=== PATIENT | male | born 1965 | race Caucasian/White ===

== ENCOUNTER 2020-02-07 15:24 | Inpatient (IN) | payer OTHER, SELFPAY ==
[2020-02-07] MEDS ORDERED: Ondansetron PF 4 MG/2 ML Vial ONE (15:59)
[2020-02-07] MEDS ORDERED: Pantoprazole 40 MG VIAL ONE ×2 (15:59→16:00)
[2020-02-07 16:04] LABS: #Basophils 0.1 thou/uL (0.0-0.2); #Eosinphils 0.1 thou/uL (0.0-0.7); #Lymphocytes 2.4 thou/uL (1.20-3.40); #Monocytes 0.9 thou/uL (0.11-0.59); #Neutrophils 3.8 thou/uL (1.40-6.50); %Basophils 1.3 % (0.0-1.0); %Eosinophils 1.3 % (0.0-10.0); %Lymphocytes 33.4 % (21.0-51.0); %Monocytes 12.3 % (0.0-10.0); %Neutrophils 51.7 % (42.0-75.0); Hemoglobin 11.9 g/dL (14.0-18.0); Mean Corpuscular HGB CONC 33.8 g/dL (32.0-36.0); Mean Corpuscular Hemoglobin 36.6 pg (27.0-31.0); Mean Platelet Volume 10.1 fL (7.4-10.4); Platelet Count 120 thou/uL (130-400); RBC Distribution Width 12.8 % (11.5-14.5); Red Blood Cell (RBC) Count 3.26 mill/uL (4.70-6.10); White Blood Cell (WBC) Count 7.3 thou/uL (4.8-10.8)
[2020-02-07 16:11] LABS: INR-International Normal Ratio 3.6; PTT 56.2 sec (22.9-36.1); Prothrombin Time 36.3 sec (12.0-14.7)
[2020-02-07 16:30] LABS: ALT (SGPT) 36 U/L (8-55); AST (SGOT) 93 U/L (5-34); Albumin 2.1 g/dL (3.5-5.0); Alkaline Phosphatase 93 U/L (40-110); Anion Gap 15 mmol/L (10-20); BUN (Urea Nitrogen) 15 mg/dL (8.4-25.7); Bilirubin, Total 5.9 mg/dL (0.2-1.2); Calc. Creatinine Clearance 0 mL/min (70-130); Calcium 8.7 mg/dL (7.8-10.44); Carbon Dioxide 15 mmol/L (22-29); Chloride 103 mmol/L (98-107); Estimated GFR-MDRD 85; Globulin 6.5 g/dL (2.4-3.5); Glucose 77 mg/dL (70-105); Potassium 4.2 mmol/L (3.5-5.1); Protein, Total 8.6 g/dL (6.0-8.3); Sodium 129 mmol/L (136-145)
[2020-02-07] MEDS ORDERED: Octreotide Acetate 100 MCG/ML VIAL ONE (16:51)
[2020-02-07] MEDS ORDERED: cefTRIAXone\\ROCEPHIN 1 GM VIAL ONE (16:52)
[2020-02-07] MEDS ORDERED: Octreotide Acetate 1,250 MCG in Sodium Chloride 0.9% 250 ML 250 ML IVPB SCH ×2 (17:15→18:15)
[2020-02-07] MEDS ORDERED: Pantoprazole 80 MG, Admixture Fee 1 EACH in Sodium Chloride 0.9% 100 ML IVPB SCH (17:15)
[2020-02-07] MEDS ORDERED: Ondansetron PF 4 MG/2 ML Vial IVP PRN (17:59)
[2020-02-07] MEDS ORDERED: Nicotine 21 MG PATCH TD SCH (18:00)
--- NOTE | 2020-02-07 18:08 | PDOC.HHP ---
Hospitalist HPI - History of Present Illness Vomiting blood History of Present Illness: Patient is a pleasant 54-year-old gentleman who was seen in the emergency room on February 07, 2020. He reports that he was diagnosed in the past with cirrhosis secondary to alcohol abuse and hepatitis C. He he was recently seen in the gastroenterology clinic. He reports that he started vomiting blood last night. He reports multiple episodes of hematemesis. He denies any chest pain. He reports generalized weakness. He reports nausea. He reports pain in the epigastric region. He is unable to describe the pain further. He denies any blood in the stools. In the emergency room, he continues to have occasional hematemesis. He was hypotensive while in the emergency room but his blood pressures have recovered since then. He has been referred to hospitalist service for admission to the hospital. Emergency room physician has also discussed his case with inspection manager on-call. ED Course: BP: 103/79, Pulse: 89, Resp: 16, Pain: 3, O2 sat: 99 on (Room Air), Time: 02/07/2020 16:40. Hospitalist ROS - Review of Systems Constitutional: reports: weakness. denies: fever, chills, sweats, malaise Cardiovascular: denies: chest pain, palpitations, orthopnea, paroxysmal noc. dyspnea, edema, light headedness Gastrointestinal: reports: vomiting, abdominal pain, other (Hematemesis) All other systems reviewed; all pertinent +/- noted in HPI/Subj - Medication Medications: Allergies: Dextromethorphan Home medications: Klor-Con ThuFeb 07, 2020 16:10 VAISHNAVI Bolden Lauren packet : Strength - 20 mEq : ORAL Patient Dose: 10 mEq. lactulose ThuFeb 07, 2020 16:11 VAISHNAVI Bolden Lauren solution : Strength - 20 gram/30 mL : ORAL Patient Dose: 2 times a day. Hospitalist History - Past Medical History Other Medical History: Past medical history: Hepatitis C, diverticulitis, bladder cancer status post surgical removal of tumor, urinary retention, microcytic anemia, cirrhosis of liver and gastroesophageal reflux disease. Surgical history: Surgery for diverticulitis and removal of bladder cancer. 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 He has not used drugs for 6 years. Patient quit tobacco and alcohol use on December 19, 2019. Prior to that, he used to smoke half a pack of cigarettes a day and drink 1 beer a day. Family history: No family history of premature coronary artery disease. - Exam General Appearance: awake alert Eye: scleral icterus ENT: normocephalic atraumatic, moist mucosa Neck: supple, symmetric, no thyromegaly Heart: RRR, no rubs Respiratory: CTAB Gastrointestinal: soft, no guarding, no rigidity Gastrointestinal - other findings: Mild epigastric tenderness Skin: no rashes Psychiatric: normal affect, normal behavior Hospitalist Results - Labs Result Diagrams: 02/07/20 15:44 02/07/20 15:44 Lab results: WBC 7.3 thou/uL (4.8-10.8) 02/07/20 15:44 Hgb 11.9 g/dL (14.0-18.0) L 02/07/20 15:44 Hct 35.2 % (42.0-52.0) L 02/07/20 15:44 MCV 108.0 fL (78.0-98.0) H 02/07/20 15:44 Plt Count 120 thou/uL (130-400) L 02/07/20 15:44 Neutrophils % 51.7 % (42.0-75.0) 02/07/20 15:44 Sodium 129 mmol/L (136-145) L 02/07/20 15:44 Potassium 4.2 mmol/L (3.5-5.1) 02/07/20 15:44 Chloride 103 mmol/L (98-107) 02/07/20 15:44 Carbon Dioxide 15 mmol/L (22-29) L 02/07/20 15:44 BUN 15 mg/dL (8.4-25.7) 02/07/20 15:44 Creatinine 0.93 mg/dL (0.7-1.3) 02/07/20 15:44 Glucose 77 mg/dL (70-105) 02/07/20 15:44 Calcium 8.7 mg/dL (7.8-10.44) 02/07/20 15:44 Total Bilirubin 5.9 mg/dL (0.2-1.2) H 02/07/20 15:44 AST 93 U/L (5-34) H 02/07/20 15:44 ALT 36 U/L (8-55) 02/07/20 15:44 Alkaline Phosphatase 93 U/L (40-110) 02/07/20 15:44 Ammonia 78 umol/L (18-72) H 02/07/20 15:44 Serum Total Protein 8.6 g/dL (6.0-8.3) H 02/07/20 15:44 Albumin 2.1 g/dL (3.5-5.0) L 02/07/20 15:44 Hospitalist H&P A/P - Problem (1) Hematemesis Code(s): K92.0 - HEMATEMESIS Status: Acute (2) Cirrhosis Code(s): K74.60 - UNSPECIFIED CIRRHOSIS OF LIVER Status: Chronic (3) Gastroesophageal reflux disease Code(s): K21.9 - GASTRO-ESOPHAGEAL REFLUX DISEASE WITHOUT ESOPHAGITIS Status: Chronic (4) Hepatitis C Code(s): B19.20 - UNSPECIFIED VIRAL HEPATITIS C WITHOUT HEPATIC COMA Status: Chronic (5) History of alcohol abuse Code(s): F10.11 - ALCOHOL ABUSE, IN REMISSION Status: Chronic (6) History of tobacco abuse Code(s): Z87.891 - PERSONAL HISTORY OF NICOTINE DEPENDENCE Status: Chronic (7) History of recreational drug use Code(s): Z87.898 - PERSONAL HISTORY OF OTHER SPECIFIED CONDITIONS Status: Chronic (8) Depression Code(s): F32.9 - MAJOR DEPRESSIVE DISORDER, SINGLE EPISODE, UNSPECIFIED Status: Chronic - Plan Plan: Patient will be admitted to the hospital. He will be treated with octreotide drip and PPI drip. Gastroenterology service has been notified by emergency room physician. I will recheck his H&H. We will type and screen in case he needs blood products. He was hypotensive earlier but is currently normotensive. Depression appears to be stable, currently untreated. Patient will need to seek help as outpatient. Many thanks for allowing me to participate in your patient's care. Please feel free to contact me with any questions or concerns. Level of risk: Moderate Level of complexity: Moderate Expected length of stay in the hospital: Greater than 2 midnights Primary CARE provider: Dr. Selwyn Anaya
[2020-02-07] MEDS ORDERED: Multivitamins, Adult 10 ML, Folic Acid 1 MG, Thiamine HCl 100 MG in Dextrose 5 %-0.45 %... IV SCH (18:15)
[2020-02-07] MEDS ORDERED: Phytonadione 10 MG/ML AMP SC SCH (19:00)
[2020-02-07 19:01] LABS: Hemoglobin 10.1 g/dL (14.0-18.0)
--- NOTE | 2020-02-07 19:52 | CON ---
DATE OF CONSULTATION: 02/07/2020 CHIEF COMPLAINT: Vomited blood. HISTORY OF PRESENT ILLNESS: Mr. Zamudio is a 54-year-old man, who has a recent diagnosis of decompensated cirrhosis secondary to alcohol. Yesterday morning, he threw up some red blood mixed with mucus he vomited. He passed one black stool yesterday. He also threw up red blood this morning again. He came into the emergency room. He reports one other black stool this morning. He had 3 other small volume red bloody emesis episodes this afternoon in the ER. He has been taking lactulose 30 mL at 8:00 a.m. and at 10:00 a.m. and has been having around 4 to 5 liquidy stools per day with that. He has had some intermittent episodes of nausea and vomiting over the last week. I saw him as a new patient in GI Clinic on 01/31/2020. He had originally presented to the emergency room a month before with weight loss and alcohol abuse and muscle wasting and abdominal distention and imaging showed signs of cirrhosis along with labs showing decompensated cirrhosis. He had presented with ascites and hepatic encephalopathy originally. He has had confusion and even some hallucinations reported by his . He does not have any abdominal pain currently. No other acute complaints currently. He was found to have hypotension with blood pressure in the 80s/50s in the emergency room. Currently, his blood pressure is 100/71. PAST MEDICAL HISTORY: Decompensated cirrhosis, hepatitis C per report. I will have labs backing that up currently. Alcohol abuse. His last drink was 1 month ago. Stroke, depression, diverticulitis, prior history of drug abuse. PAST SURGICAL HISTORY: He had a colectomy for diverticulitis back in 2009, that was the time of his last colonoscopy as well. FAMILY HISTORY: Negative for GI malignancy. SOCIAL HISTORY: He had been drinking a 40-ounce malt liquor 5 per day up until August 2019, then he cut down to 3 per day and more recently to 1 per day, and then over the last month, he stopped all alcohol. He used heroin from 2010 to 2016. He smokes a cigarette a day. REVIEW OF SYSTEMS: Negative x10 systems reviewed except as stated in the history of present illness. ALLERGIES: DEXTROMETHORPHAN. CURRENT MEDICATIONS: 1. Folic acid. 2. Thiamine. 3. Potassium. PHYSICAL EXAMINATION: VITAL SIGNS: His blood pressure is 100/71, pulse has been in the 80s, and he has been afebrile. GENERAL: He is oriented to his name and place. HEENT: He has jaundice and scleral icterus. Oropharynx has dry mucous membranes. Nose is clear. LYMPHATIC: Otherwise, no cervical or supraclavicular lymphadenopathy. LUNGS: Clear to auscultation bilaterally. HEART: Regular rate and rhythm without murmur. ABDOMEN: Soft, distended, and has fluid wave, but he is not tensed. His abdomen is nontender and his bowel sounds are present. EXTREMITIES: No lower extremity edema. NEUROLOGIC: He has asterixis on neurological exam. He has peripheral muscle wasting. LABORATORY DATA: White blood cell count 7.3, hemoglobin 11.9, hemoglobin back on 12/16/2019 was 12.7, MCV is 108, platelets 120. INR 3.6. Sodium 129, potassium 4.2, chloride 103, CO2 of 15, BUN 15, creatinine 0.93, bilirubin 5.9, AST 93, ALT 36, alkaline phosphatase 93, ammonia 78, albumin 2.1, total protein is 8.6 with a globulin of 6.5. IMPRESSION: 1. Hematemesis. We will need to evaluate for esophageal or gastric varices. His hematemesis has been relatively small volume and he did pass a couple of dark stools. Currently, he has a scant amount of dark stool in his rectal vault, but no significant melena or red blood in the rectal vault now. 2. Decompensated cirrhosis secondary to past alcohol and reported history of hepatitis C. His bilirubin is elevated. His INR is significantly elevated. His albumin is low. He has muscle wasting. His abdominal distention consistent with ascites. 3. Hepatic encephalopathy. He has asterixis on neurological exam currently. He was started on lactulose a few days ago and we will continue this. 4. Ascites. He has been started on a low-salt diet prior to this hospitalization. He will need to be covered with antibiotics for prophylaxis for SBP in light of GI bleed. Diagnostic tap can be performed later. 5. Hepatoma screening. We will check an alpha fetoprotein. Ultrasound was negative for mass recently on 12/16/2019. 6. Abnormal CT scan of the abdomen. CT scan on 12/16/2019 showed some thickening or edema of the right colon. However, I suspect this was likely just secondary to the ascites and portal hypertension. 7. Macrocytic anemia. RECOMMENDATIONS: 1. Octreotide bolus and drip. 2. Protonix drip. 3. EGD tomorrow morning. 4. Lab workup to evaluate the etiology of cirrhosis beyond the alcohol will include hepatitis C RNA, hepatitis C genotype, hepatitis A total antibody, hepatitis B surface antibody, hepatitis B surface antigen, smooth muscle antibody, mitochondrial antibody, iron studies, alpha-1 antitrypsin level, PT/INR, CMP. We will check B12 and folic acid as well. 5. Precautions for alcohol withdrawal. 6. Vitamin K. 7. Thiamine and folic acid. 8. Lactulose. He has asterixis now. Will give additional lactulose now. 9. Check alpha-fetoprotein. 10. Recheck labs in the morning. We might need to give additional FFP prior to the procedure, potentially if his INR remains significantly elevated. INR was 3.6 today. 11. We will keep in mind that his globulin is elevated, which could indicate an underlying autoimmune hepatitis as well. Job ID: [id number]
[2020-02-07 20:08] LABS: Iron 97 ug/dL (65-175); Iron Binding Capacity, Total 89 mcg/dL (261-462)
[2020-02-07] MEDS ORDERED: Phytonadione 10 MG/ML AMP ONE (20:10)
[2020-02-07 20:24] LABS: Ferritin 398.32 ng/mL (22-322)
[2020-02-07 23:07] LABS: HBSAB Concentration Less than 8.00 mIU/mL; Hep B Surf AB Non-Reactive (NonReactive); Hep B Surf Ag Non-Reactive S/CO (NonReactive)
[2020-02-07 23:22] LABS: Hemoglobin 9.8 g/dL (14.0-18.0)
[2020-02-08] MEDS: Pantoprazole 80 MG in Sodium Chloride 0.9% 100 ML IVPB SCH ×2 (03:24→15:00)
[2020-02-08 03:38] LABS: #Basophils 0.1 thou/uL (0.0-0.2); #Eosinphils 0.1 thou/uL (0.0-0.7); #Lymphocytes 2.2 thou/uL (1.20-3.40); #Neutrophils 4.2 thou/uL (1.40-6.50); %Basophils 0.7 % (0.0-1.0); %Eosinophils 1.5 % (0.0-10.0); %Lymphocytes 29.6 % (21.0-51.0); %Monocytes 12.7 % (0.0-10.0); %Neutrophils 55.5 % (42.0-75.0); Hemoglobin 10.7 g/dL (14.0-18.0); Mean Corpuscular HGB CONC 33.8 g/dL (32.0-36.0); Mean Corpuscular Hemoglobin 37.8 pg (27.0-31.0); Mean Platelet Volume 10.2 fL (7.4-10.4); Platelet Count 110 thou/uL (130-400); RBC Distribution Width 13.1 % (11.5-14.5); Red Blood Cell (RBC) Count 2.82 mill/uL (4.70-6.10); White Blood Cell (WBC) Count 7.5 thou/uL (4.8-10.8)
[2020-02-08 03:50] LABS: INR-International Normal Ratio 3.1; Prothrombin Time 32.7 sec (12.0-14.7)
[2020-02-08 04:15] LABS: ALT (SGPT) 35 U/L (8-55); AST (SGOT) 88 U/L (5-34); Alkaline Phosphatase 78 U/L (40-110); Anion Gap 17 mmol/L (10-20); BUN (Urea Nitrogen) 17 mg/dL (8.4-25.7); Calc. Creatinine Clearance 66 mL/min (70-130); Calcium 8.4 mg/dL (7.8-10.44); Carbon Dioxide 11 mmol/L (22-29); Chloride 106 mmol/L (98-107); Estimated GFR-MDRD 72; Globulin 5.8 g/dL (2.4-3.5); Glucose 80 mg/dL (70-105); Potassium 4.4 mmol/L (3.5-5.1); Protein, Total 7.8 g/dL (6.0-8.3); Sodium 130 mmol/L (136-145)
[2020-02-08 08:21] LABS: SARS-CoV-2 NAA Rapid Test Not Detected (NotDetected)
[2020-02-08] MEDS ORDERED: PROPOFOL 200 MG/20 ML VIAL ONE (08:56)
[2020-02-08] MEDS ORDERED: PHENYLEPHRINE-NS 100 MCG/ML 10 ML SYRINGE ONE (08:56)
[2020-02-08] MEDS ORDERED: Sodium Chloride 0.9% 100 ML ONE (09:33)
[2020-02-08] MEDS ORDERED: cefTRIAXone\\ROCEPHIN 2 GM VIAL ONE (09:33)
[2020-02-08] MEDS ORDERED: Phytonadione 10 MG/ML AMP PO SCH (10:30)
[2020-02-08] MEDS: Thiamine 100 MG TAB PO SCH (11:26)
[2020-02-08] MEDS: cefTRIAXone\\ROCEPHIN 2 GM in Sodium Chloride 0.9% 100 ML IVPB SCH (11:26)
--- NOTE | 2020-02-08 17:57 | PDOC.HOSPP ---
- Subjective Encounter Date: 02/08/20 Encounter Time: 14:30 Subjective: Patient seen for follow-up regarding hematemesis. Reports feeling better. Denies abdominal pain. - Objective Vital Signs & Weight: Vital Signs (12 hours) Temp 02/08/20 14:59 99.4 F 02/08/20 12:35 98.4 F 02/08/20 12:15 98.1 F 02/08/20 11:23 98.6 F 02/08/20 07:16 99.4 F Weight Admit Weight 129 lb 4 oz Weight 129 lb 4 oz Most Recent Monitor Data Heart Rate from ECG 110 NIBP 115/73 NIBP BP-Mean 87 Respiration from ECG 17 SpO2 99 I&O: 02/07/20 02/08/20 02/09/20 06:59 06:59 06:59 Intake Total 237 290 Balance 237 290 Result Diagrams: 02/08/20 03:21 02/08/20 03:21 Additional Labs: Labs and MAR reviewed by me EKG Reviewed by me: Yes (Telemetry: Sinus tachycardia) Hospitalist ROS - Review of Systems Constitutional: denies: fever, chills, sweats, weakness, malaise Cardiovascular: denies: chest pain, palpitations, orthopnea, paroxysmal noc. dyspnea, edema, light headedness Gastrointestinal: reports: other (Hematemesis). denies: nausea, vomiting, abdominal pain, diarrhea, constipation, melena, hematochezia Genitourinary: denies: dysuria, frequency, incontinence, hematuria, retention Musculoskeletal: denies: neck pain, shoulder pain, arm pain, back pain, hand pain, leg pain, foot pain Skin: denies: rash, lesions, [place], bruising - Medication Medications: Active Medications Generic Name Dose Route Start Last Admin Trade Name Freq PRN Reason Stop Dose Admin Pantoprazole Sodium 80 mg/ 100 mls @ 10 mls/hr 02/07/20 18:15 02/08/20 15:00 Sodium Chloride IVPB 100 mls INF NIKKO Administration Ceftriaxone Sodium 2 gm/ 100 mls @ 200 mls/hr 02/08/20 09:00 02/08/20 11:26 Sodium Chloride IVPB 100 mls Q24HR NIKKO Administration Lactulose 20 gm 02/08/20 09:00 02/08/20 11:26 Lactulose 20 Gm/30 Ml Udcup PO 20 gm BID NIKKO Administration Sodium Chloride 10 ml 02/08/20 09:00 02/08/20 11:27 Flush - Normal Saline 10 Ml Syringe IVF 10 ml Q12HR NIKKO Administration Thiamine HCl 100 mg 02/08/20 09:00 02/08/20 11:26 Thiamine 100 Mg Tab PO 100 mg DAILY NIKKO Administration - Exam General Appearance: awake alert Eye: scleral icterus Neck: supple, symmetric, no thyromegaly, no lymphadenopathy Heart: RRR, no rubs Respiratory: CTAB, no wheezes, no rales, no ronchi Gastrointestinal: soft, non-tender, normal bowel sounds, no palpable masses Skin: no rashes Psychiatric: normal affect, normal behavior, oriented to person, oriented to place Hosp A/P (1) Hematemesis Code(s): K92.0 - HEMATEMESIS Status: Acute (2) Cirrhosis Code(s): K74.60 - UNSPECIFIED CIRRHOSIS OF LIVER Status: Chronic (3) Gastroesophageal reflux disease Code(s): K21.9 - GASTRO-ESOPHAGEAL REFLUX DISEASE WITHOUT ESOPHAGITIS Status: Chronic (4) Hepatitis C Code(s): B19.20 - UNSPECIFIED VIRAL HEPATITIS C WITHOUT HEPATIC COMA Status: Chronic (5) History of alcohol abuse Code(s): F10.11 - ALCOHOL ABUSE, IN REMISSION Status: Chronic (6) History of tobacco abuse Code(s): Z87.891 - PERSONAL HISTORY OF NICOTINE DEPENDENCE Status: Chronic (7) History of recreational drug use Code(s): Z87.898 - PERSONAL HISTORY OF OTHER SPECIFIED CONDITIONS Status: Chr onic (8) Depression Code(s): F32.9 - MAJOR DEPRESSIVE DISORDER, SINGLE EPISODE, UNSPECIFIED Status: Chronic - Plan Status post EGD.Await report, continue PPI drip. Octreotide has been discontinued. Continue ceftriaxone. Continue lactulose. Patient has received FFP and vitamin K. Recheck INR. Continue thiamine. Patient reportedly quit alcohol and tobacco use last month.
[2020-02-09] MEDS: Pantoprazole 80 MG in Sodium Chloride 0.9% 100 ML IVPB SCH ×2 (00:52→10:30)
[2020-02-09 04:04] LABS: #Basophils 0.1 thou/uL (0.0-0.2); #Eosinphils 0.4 thou/uL (0.0-0.7); #Neutrophils 5.1 thou/uL (1.40-6.50); %Basophils 0.8 % (0.0-1.0); %Eosinophils 4.5 % (0.0-10.0); %Lymphocytes 23.2 % (21.0-51.0); %Monocytes 11.5 % (0.0-10.0); Hemoglobin 8.5 g/dL (14.0-18.0); INR-International Normal Ratio 2.8; Mean Corpuscular HGB CONC 34.3 g/dL (32.0-36.0); Mean Corpuscular Hemoglobin 37.4 pg (27.0-31.0); Mean Platelet Volume 9.6 fL (7.4-10.4); Platelet Count 79 thou/uL (130-400); Prothrombin Time 30.2 sec (12.0-14.7); Red Blood Cell (RBC) Count 2.26 mill/uL (4.70-6.10); White Blood Cell (WBC) Count 8.5 thou/uL (4.8-10.8)
[2020-02-09 04:22] LABS: ALT (SGPT) 27 U/L (8-55); AST (SGOT) 70 U/L (5-34); Albumin 1.9 g/dL (3.5-5.0); Alkaline Phosphatase 70 U/L (40-110); Anion Gap 11 mmol/L (10-20); BUN (Urea Nitrogen) 17 mg/dL (8.4-25.7); Bilirubin, Total 3.4 mg/dL (0.2-1.2); Calc. Creatinine Clearance 64 mL/min (70-130); Calcium 8.1 mg/dL (7.8-10.44); Carbon Dioxide 15 mmol/L (22-29); Chloride 108 mmol/L (98-107); Estimated GFR-MDRD 70; Globulin 4.6 g/dL (2.4-3.5); Glucose 111 mg/dL (70-105); Potassium 3.3 mmol/L (3.5-5.1); Protein, Total 6.5 g/dL (6.0-8.3); Sodium 131 mmol/L (136-145)
--- NOTE | 2020-02-09 09:37 | OP ---
DATE OF PROCEDURE: 02/08/2020 PROCEDURE: Esophagogastroduodenoscopy with control of hemorrhage, biopsy. INDICATIONS FOR PROCEDURE: Hematemesis, history of cirrhosis of the liver. DESCRIPTION OF PROCEDURE: After the risks and benefits of the procedure were explained to the patient including risks of bleeding, infection, perforation, reactions to anesthesia, aspiration and/or pain, informed consent was obtained. The patient was then taken to the endoscopy suite, where he was maneuvered into the left lateral decubitus position, followed by introduction of deep sedation via propofol and anesthesia support. Once adequate sedation was achieved, the standard gastroscope was introduced into the mouth with intubation of the esophagus, stomach, and the proximal small intestines with the findings listed below. The patient tolerated the procedure well with no immediate perioperative complications. Upon conclusion of the procedure, all equipment was removed from the patient and he was transferred to PACU in satisfactory condition. FINDINGS: Esophagus: Normal-appearing mucosa was seen in the proximal and mid esophagus, however, in the distal esophagus, 3 to 4 linear erosions were seen extending proximally from the gastroesophageal junction consistent with reflux esophagitis. They did extend greater than 5 mm in length, but did not extend between esophageal folds. Also seen in the distal esophagus were small esophageal varices (grade 1) without any high-risk stigmata of active or recent bleeding. A hiatal hernia was also seen with diaphragmatic pinch seen at 41 cm while the gastroesophageal junction was well seen at 38 cm, denoting a 3 to 4 cm hiatal hernia. Otherwise, there was no evidence of overt ulceration, mass lesions, or active/recent bleeding seen in this region. Stomach: A moderately large hiatal hernia was encountered upon entry into the stomach. It was measured at approximately 3 to 4 cm in size located along the edge of the hernial sac at the region of the diaphragmatic pinch. There were two clean-based ulcerations seen that did not exhibit any high-risk stigmata of bleeding. Otherwise, the entire stomach had a moderately increased erythematous appearance in a mosaic-type pattern, but no other evidence of active/recent bleeding. There was no evidence of mass lesions or active/recent bleeding seen throughout the entire stomach. Duodenum: Upon entry into the duodenal bulb, a 1.5-cm cratered ulceration was seen along the posterior wall that exhibited adherent clot as well as oozing of blood. This was subsequently intervened upon with bipolar cauterization with good hemostasis achieved. There was then mild oozing of blood around the periphery of the cauterized edge after cautery was complete, most likely indicative of the patient's elevated INR, but no other active bleeding was seen. Otherwise, normal-appearing mucosa was seen in the duodenal bulb. Given the presence of the ulcers in the stomach and in the duodenal bulb, random gastric biopsies were obtained for evaluation of possible H pylori. IMPRESSION: 1. A 1.5-cm cratered ulceration seen in the duodenal bulb along the posterior wall exhibiting adherent clot and oozing of blood that was intervened upon with bipolar cauterization with good hemostasis achieved. 2. Moderately severe portal hypertensive gastropathy. 3. A 3-to 4-cm hiatal hernia with probable Hua's erosions without any evidence of active/recent bleeding. 4. Small (grade 1) distal esophageal varices without any high-risk stigmata of active/recent bleeding. No gastric varices were seen on gastric retroflexion. 5. Casey grade B reflux esophagitis. RECOMMENDATIONS: 1. We would continue to trend his H and H and transfuse as necessary to maintain an H and H of 7/21. 2. Continue to monitor clinically for signs of active GI bleeding. 3. We would discontinue the octreotide drip given the lack of evidence of variceal bleeding. 4. We will continue the patient on a PPI drip for the next 24 hours, then transfer to pantoprazole 40 mg IV b.i.d. 5. We would administer another round of FFP given the patient's significantly elevated INR and interventions done today. 6. We would administer another 5 mg of oral vitamin K for probable nutritional deficiency. 7. Continue the patient on lactulose 20 g b.i.d. in light of probable hepatic encephalopathy. 8. Continue the patient on antibiotics as part of prophylaxis in a cirrhotic patient with a GI bleed. 9. Continue thiamine supplementation given his history of alcoholic cirrhosis and probable nutritional deficiency. 10. We would follow up on full liver workup obtained during this admission. We will continue to follow. Please call with any questions. Job ID: [id number]
[2020-02-09] MEDS: Thiamine 100 MG TAB PO SCH (10:25)
[2020-02-09] MEDS: cefTRIAXone\\ROCEPHIN 2 GM in Sodium Chloride 0.9% 100 ML IVPB SCH (10:25)
[2020-02-09 13:00] LABS: Hemoglobin 9.2 g/dL (14.0-18.0)
[2020-02-09] MEDS ORDERED: Phytonadione 10 MG in Sodium Chloride 0.9% 50 ML IVPB SCH (14:45)
--- NOTE | 2020-02-09 14:58 | PRG ---
DATE OF SERVICE: 02/09/2020 SUBJECTIVE: Mr. Zamudio is without complaints. His is at the bedside. He knows he is in the hospital. He does not know where. His states that he is baseline confused at home and takes lactulose and is about the same as he has at home. He has been tolerating clear liquids today. He has had no vomiting and no melena. Nurses note no new problems. MEDICATIONS: 1. Rocephin 2 g IV q.24 hours. 2. Lactulose b.i.d. 20 g. 3. Zofran p.r.n. 4. Protonix drip. 5. Thiamine. OBJECTIVE: VITAL SIGNS: Temperature 98.2, pulse is 108, blood pressure 151/78. GENERAL: Mildly pale. LUNGS: Clear. HEART: Regular without clicks or murmurs. ABDOMEN: Soft, slightly protuberant. There is a fluid wave. There is no shifting dullness. There is no evidence of hernias. EXTREMITIES: Trace edema. LABORATORY DATA: Hemoglobin is 9.2 at 1 p.m. today, it was 8.5 at 3 a.m., and it was 10.7 yesterday. Platelet count 79,000. INR 2.8 this morning. Sodium 131, potassium 3.3, BUN and creatinine are 17 and 1.10. Bilirubin is 3.4, down from 5. AST is 70, ALT is 27, alkaline phosphatase is 70. Albumin is 1.9, it was 2 yesterday. Protein is 6.5. B12 is normal. Folate 12. AFP 2. TSH was 4. Hepatitis C RNA pending. Abdominal ultrasound on 12/15, minimal ascites, recanalized portal vein, no stones, cirrhotic liver. On 12/16/2019, CAT scan of the abdomen and pelvis, fatty liver and small volume ascites. ASSESSMENT: 1. Gastrointestinal hemorrhage from duodenal ulcer, now stable status post treatment. 2. Decompensated cirrhosis, alcohol and hepatitis C. PCR on hepatitis C is pending as it is unclear if it has been treated in the past. His INR was markedly elevated per the previous admission. He looks malnourished. He has developed more ascites and encephalopathy. 3. Possibly Wernicke encephalopathy. RECOMMENDATIONS: Add multivitamin and folate to his thiamine. I will give him vitamin K daily in light of his coagulation defect. I will give him albumin for few days. Continue Protonix drip for now. He is at high risk for rebleeding. I would add Xifaxan for encephalopathy. Job ID: [id number]
[2020-02-09] MEDS: Albumin 25% 25 GM/100 ML BOT IVPB SCH ×2 (16:11→20:38)
--- NOTE | 2020-02-09 16:26 | PDOC.HOSPP ---
- Subjective Encounter Date: 02/09/20 Encounter Time: 10:30 Subjective: Patient seen in follow-up for hematemesis. He reports feeling better. - Objective Vital Signs & Weight: Vital Signs (12 hours) Temp Pulse Ox 02/09/20 08:00 98 02/09/20 07:39 98.2 F Weight Admit Weight 129 lb 4 oz Weight 129 lb 4 oz Most Recent Monitor Data Heart Rate from ECG 108 NIBP 115/78 NIBP BP-Mean 90 Respiration from ECG 22 SpO2 96 I&O: 02/08/20 02/09/20 02/10/20 06:59 06:59 06:59 Intake Total 237 1690.8 Output Total 125 Balance 237 1565.8 Result Diagrams: 02/09/20 12:47 02/09/20 03:30 Additional Labs: I reviewed patient's labs and MAR EKG Reviewed by me: Yes (Normal sinus rhythm on telemetry) Hospitalist ROS - Review of Systems Cardiovascular: denies: chest pain, palpitations, orthopnea, paroxysmal noc. dyspnea, edema, light headedness Gastrointestinal: denies: nausea, vomiting, abdominal pain, diarrhea, constipation, melena, hematochezia - Medication Medications: Active Medications Generic Name Dose Route Start Last Admin Trade Name Freq PRN Reason Stop Dose Admin Albumin Human 25 gm 02/09/20 15:00 02/09/20 16:11 Albumin 25% 25 Gm/100 Ml Bot IVPB 02/10/20 15:01 25 gm TID NIKKO Administration Pantoprazole Sodium 80 mg/ 100 mls @ 10 mls/hr 02/07/20 18:15 02/09/20 10:30 Sodium Chloride IVPB 100 mls INF NIKKO Administration Ceftriaxone Sodium 2 gm/ 100 mls @ 200 mls/hr 02/08/20 09:00 02/09/20 10:25 Sodium Chloride IVPB 100 mls Q24HR NIKKO Administration Phytonadione 10 mg/ Sodium 51 mls @ 120 mls/hr 02/09/20 14:45 02/09/20 16:11 Chloride IVPB 02/09/20 16:45 51 mls NOW NIKKO Administration Lactulose 20 gm 02/09/20 15:00 02/09/20 16:12 Lactulose 20 Gm/30 Ml Udcup PO 20 gm TID NIKKO Administration Sodium Chloride 10 ml 02/08/20 09:00 02/09/20 10:27 Flush - Normal Saline 10 Ml Syringe IVF 10 ml Q12HR NIKKO Administration Thiamine HCl 100 mg 02/08/20 09:00 02/09/20 10:25 Thiamine 100 Mg Tab PO 100 mg DAILY NIKKO Administration - Exam General Appearance: awake alert Eye: scleral icterus ENT: moist mucosa Neck: supple Heart: RRR Respiratory: CTAB Gastrointestinal: soft, non-tender Skin: no rashes Psychiatric: normal affect, normal behavior Hosp A/P (1) Hematemesis Code(s): K92.0 - HEMATEMESIS Status: Acute (2) Duodenal ulcer Status: Acute (3) Cirrhosis Code(s): K74.60 - UNSPECIFIED CIRRHOSIS OF LIVER Status: Chronic (4) Gastroesophageal reflux disease Code(s): K21.9 - GASTRO-ESOPHAGEAL REFLUX DISEASE WITHOUT ESOPHAGITIS Status: Chronic (5) Hepatitis C Code(s): B19.20 - UNSPECIFIED VIRAL HEPATITIS C WITHOUT HEPATIC COMA Status: Chronic (6) History of alcohol abuse Code(s): F10.11 - ALCOHOL ABUSE, IN REMISSION Status: Chronic (7) History of tobacco abuse Code(s): Z87.891 - PERSONAL HISTORY OF NICOTINE DEPENDENCE Status: Chronic (8) History of recreational drug use Code(s): Z87.898 - PERSONAL HISTORY OF OTHER SPECIFIED CONDITIONS Status: Chronic (9) Depression Code(s): F32.9 - MAJOR DEPRESSIVE DISORDER, SINGLE EPISODE, UNSPECIFIED Status: Chronic - Plan Status post EGD.Await report, continue PPI drip. Continue rifaximin Continue ceftriaxone. Continue lactulose. Continue thiamine. Patient reportedly quit alcohol and tobacco use last month.
[2020-02-09] MEDS: Rifaximin 550 MG TAB PO SCH (20:38)
[2020-02-10 05:14] LABS: INR-International Normal Ratio 3.6
[2020-02-10 05:20] LABS: #Basophils 0.1 thou/uL (0.0-0.2); #Eosinphils 0.4 thou/uL (0.0-0.7); #Lymphocytes 2.3 thou/uL (1.20-3.40); #Neutrophils 6.4 thou/uL (1.40-6.50); %Basophils 0.7 % (0.0-1.0); %Eosinophils 3.7 % (0.0-10.0); %Lymphocytes 22.6 % (21.0-51.0); %Monocytes 9.9 % (0.0-10.0); %Neutrophils 63.1 % (42.0-75.0); Hemoglobin 8.7 g/dL (14.0-18.0); Mean Corpuscular HGB CONC 33.8 g/dL (32.0-36.0); Mean Corpuscular Hemoglobin 36.7 pg (27.0-31.0); Platelet Count 72 thou/uL (130-400); Red Blood Cell (RBC) Count 2.36 mill/uL (4.70-6.10); White Blood Cell (WBC) Count 10.1 thou/uL (4.8-10.8)
[2020-02-10 05:32] LABS: ALT (SGPT) 22 U/L (8-55); AST (SGOT) 58 U/L (5-34); Albumin 2.3 g/dL (3.5-5.0); Alkaline Phosphatase 62 U/L (40-110); Anion Gap 10 mmol/L (10-20); BUN (Urea Nitrogen) 14 mg/dL (8.4-25.7); Bilirubin, Total 3.4 mg/dL (0.2-1.2); Calc. Creatinine Clearance 81 mL/min (70-130); Calcium 8.3 mg/dL (7.8-10.44); Carbon Dioxide 18 mmol/L (22-29); Chloride 110 mmol/L (98-107); Estimated GFR-MDRD Greater than 90; Globulin 4.1 g/dL (2.4-3.5); Glucose 75 mg/dL (70-105); Potassium 3.1 mmol/L (3.5-5.1); Protein, Total 6.4 g/dL (6.0-8.3); Sodium 135 mmol/L (136-145)
[2020-02-10] MEDS ORDERED: Furosemide 40 MG/4 ML VIAL ONE (05:42)
[2020-02-10] MEDS ORDERED: Furosemide 40 MG/4 ML VIAL SLOW IVP SCH (05:45)
[2020-02-10] MEDS ORDERED: Lorazepam 2 MG/ML VIAL SLOW IVP SCH (05:51)
--- NOTE | 2020-02-10 05:51 | PDOC.EVN ---
Event Note - Event Note Event Note: called by RN, patient became agitated and appeared sob will give lasix ativan, and do a CXR.
[2020-02-10 05:52] VITALS: BP 91/54
[2020-02-10 07:29] LABS: Actual Bicarbonate (HCO3a) 16.5 mEq/L (22-28); CO2 Tension 26.5 mmHg (35.0-45.0); Calcium, Ionized (arterial) 1.25 mmol/L (1.12-1.30); Carboxyhemoglobin (COHb) 0.3 gm% (0.0-3.0); Hemoglobin (Hb) 9.4 g/dL (14.0-18.0); Potassium - ABG Lab 2.76 mmol/L (3.70-5.30); pH, Arterial 7.41 (7.35-7.45)
[2020-02-10] MEDS ORDERED: VANC IVPB PRN (07:39)
[2020-02-10] MEDS ORDERED: [UNRECOGNIZED DRUG - OTHER] IVPB PRN (07:39)
[2020-02-10 07:42] LABS: Anion Gap 15 mmol/L (10-20); BUN (Urea Nitrogen) 11 mg/dL (8.4-25.7); Calc. Creatinine Clearance 77 mL/min (70-130); Calcium 8.5 mg/dL (7.8-10.44); Carbon Dioxide 10 mmol/L (22-29); Chloride 112 mmol/L (98-107); Estimated GFR-MDRD 81; Glucose 71 mg/dL (70-105); Potassium 3.6 mmol/L (3.5-5.1); Sodium 133 mmol/L (136-145)
[2020-02-10] MEDS ORDERED: Vancomycin 1 GM in Premix Bag 1 BAG IVPB SCH (07:45)
[2020-02-10 07:48] LABS: Troponin I 0.025 ng/mL (< 0.028)
--- NOTE | 2020-02-10 07:48 | RAD ---
Chest AP view INDICATION: History of shortness of breath COMPARISON: December 16, 2019 FINDINGS: Lungs: There are bilateral perihilar airspace opacities suspicious for pneumonia. Cardiac silhouette: The cardiomediastinal silhouette appears within normal limits. Pulmonary vasculature: Normal Pleural spaces: No pleural effusion or pneumothorax is demonstrated. Upper abdomen: No abnormality seen. Osseous structures: No acute osseous abnormality. Additional findings: None. IMPRESSION: Bilateral perihilar airspace opacities suspicious for pneumonia.
[2020-02-10] MEDS ORDERED: Pantoprazole 80 MG, Admixture Fee 1 EACH in Sodium Chloride 0.9% 100 ML IVPB SCH (08:00)
[2020-02-10 08:04] LABS: O2 Tension (PaO2), arterial 54.6 mmHg (80.0-100.0)
[2020-02-10 08:05] LABS: ALV-art Gradient 268.775 mmHg (0-20); Puncture Site RB
[2020-02-10] MEDS: Albumin 25% 25 GM/100 ML BOT IVPB SCH ×2 (08:53→15:14)
[2020-02-10] MEDS: Cefepime 1 GM in Sodium Chloride 0.9% 100 ML IVPB SCH ×2 (08:56→21:55)
[2020-02-10 11:16] LABS: Smooth Muscle Total ABS 21 Units (0-19)
[2020-02-10] MEDS: Folic Acid 1 MG TAB PO SCH (11:40)
[2020-02-10] MEDS: Multivitamin W/ Minerals 1 TAB PO SCH (11:40)
[2020-02-10] MEDS: Rifaximin 550 MG TAB PO SCH ×2 (11:41→21:48)
[2020-02-10] MEDS: Thiamine 100 MG TAB PO SCH (11:41)
[2020-02-10 12:23] VITALS: BMI 19.1
[2020-02-10 13:16] LABS: HCV log10 1.477 (.); Hep C PCR-Quant 30 IU/mL (.)
[2020-02-10] MEDS: metroNIDAZOLE 500 MG in Premix Bag 1 BAG IVPB SCH ×2 (14:10→18:34)
[2020-02-10] MEDS ORDERED: Furosemide 20 MG/2 ML VIAL SLOW IVP SCH (14:45)
[2020-02-10] MEDS ORDERED: Albumin 25% 25 GM/100 ML BOT IVPB SCH ×2 (14:45→18:15)
--- NOTE | 2020-02-10 16:03 | PRG ---
DATE OF SERVICE: 02/10/2020 SUBJECTIVE: Mr. Zamudio has had respiratory distress today. He is going to get some Lasix with albumin talking to his nurse. He is mildly confused. His is at the bedside. He has a face mask on. MEDICATIONS: 1. Albumin 25 g scheduled. 2. Cefepime. 3. Furosemide 20 IV once scheduled. 4. Folvite daily. 5. Iron. 6. Multivitamin. 7. Thiamine. 8. Lactulose 20 t.i.d. 9. Flagyl q.8 hours. 10. Protonix drip. 11. Xifaxan. 12. Thiamine. 13. Vancomycin. OBJECTIVE: ABDOMEN: Soft, slightly protuberant. He has muscle wasting throughout. Bowel sounds are positive. EXTREMITIES: No clubbing, cyanosis or edema. LABORATORY DATA: White count 10, hemoglobin 8.7, platelet count 72,000. INR 3.6. Sodium 133, potassium 3.6. BUN and creatinine 11 and 0.97. Hepatitis A antibody total was positive. ASSESSMENT: 1. Cirrhosis, alcoholic liver disease. 2. Duodenal ulcer, no hemorrhage now. 3. Decompensation with portal hypertension and ascites, encephalopathy, coagulopathy. RECOMMENDATION: 1. Continue anticoagulations. 2. Change Protonix from drip to q.12 hours. 3. Continue albumin and diuretic. We will follow along with you. Job ID: [id number]
[2020-02-10] MEDS: Pantoprazole 40 MG VIAL IVP SCH (17:38)
--- NOTE | 2020-02-10 18:05 | PDOC.HOSPP ---
- Subjective Encounter Date: 02/10/20 Encounter Time: 12:00 Subjective: Patient seen for follow-up regarding bradycardia distress. Overnight events were noted. Denies any chest pain. - Objective Vital Signs & Weight: Vital Signs (12 hours) Temp Pulse Resp Pulse Ox 02/10/20 15:48 97.4 F L 02/10/20 14:17 100 32 H 99 02/10/20 11:21 97.8 F 02/10/20 10:40 113 H 31 H 98 02/10/20 08:13 117 H 29 H 95 02/10/20 08:00 92 L 02/10/20 07:19 98.2 F 02/10/20 07:17 93 L Weight Admit Weight 129 lb 4 oz Weight 136 lb 14.4 oz Most Recent Monitor Data Heart Rate from ECG 97 NIBP 102/63 NIBP BP-Mean 76 Respiration from ECG 21 SpO2 95 I&O: 02/09/20 02/10/20 02/11/20 06:59 06:59 06:59 Intake Total 1690.8 716 Output Total 125 970 Balance 1565.8 -254 Result Diagrams: 02/10/20 04:16 02/10/20 07:05 Additional Labs: Labs and MAR reviewed by me EKG Reviewed by me: Yes (Normal sinus rhythm on telemetry) Hospitalist ROS - Review of Systems Respiratory: reports: shortness of breath, SOB with excertion. denies: cough, dry, hemoptysis, pleuritic pain, sputum, wheezing Cardiovascular: reports: edema. denies: chest pain, palpitations, orthopnea, paroxysmal noc. dyspnea, light headedness Gastrointestinal: denies: nausea, vomiting, abdominal pain, diarrhea, constip ation, melena, hematochezia - Medication Medications: Active Medications Generic Name Dose Route Start Last Admin Trade Name Freq PRN Reason Stop Dose Admin Folic Acid 1 mg 02/10/20 09:00 02/10/20 11:40 Folic Acid 1 Mg Tab PO Not Given DAILY NIKKO Cefepime HCl 1 gm/ Sodium 100 mls @ 200 mls/hr 02/10/20 09:00 02/10/20 08:56 Chloride IVPB 100 mls Q12HR NIKKO Administration Metronidazole 500 mg/ Device 100 mls @ 100 mls/hr 02/10/20 09:15 02/10/20 14:10 IVPB 100 mls Q8H NIKKO Administration Iron/Minerals/Multivitamins 1 tab 02/10/20 09:00 02/10/20 11:40 Multivitamin W/ Minerals 1 Tab PO Not Given DAILY NIKKO Lactulose 20 gm 02/09/20 15:00 02/10/20 15:14 Lactulose 20 Gm/30 Ml Udcup PO Not Given TID NIKKO Rifaximin 550 mg 02/09/20 21:00 02/10/20 11:41 Rifaximin 550 Mg Tab PO Not Given BID NIKKO Sodium Chloride 10 ml 02/08/20 09:00 02/10/20 11:41 Flush - Normal Saline 10 Ml Syringe IVF Not Given Q12HR NIKKO Thiamine HCl 100 mg 02/08/20 09:00 02/10/20 11:41 Thiamine 100 Mg Tab PO Not Given DAILY NIKKO - Exam General Appearance: awake alert Eye: scleral icterus ENT: moist mucosa Neck: supple Heart: RRR Respiratory - other findings: Bilateral crackles Gastrointestinal: soft, no guarding, no rigidity, distended Extremities: 2+ LE edema Psychiatric: normal affect Hosp A/P (1) Respiratory distress Code(s): R06.03 - ACUTE RESPIRATORY DISTRESS Status: Acute (2) Pneumonia Code(s): J18.9 - PNEUMONIA, UNSPECIFIED ORGANISM Status: Acute (3) Duodenal ulcer Status: Acute (4) Cirrhosis Code(s): K74.60 - UNSPECIFIED CIRRHOSIS OF LIVER Status: Chronic (5) Gastroesophageal reflux disease Code(s): K21.9 - GASTRO-ESOPHAGEAL REFLUX DISEASE WITHOUT ESOPHAGITIS Status: Chronic (6) Hepatitis C Code(s): B19.20 - UNSPECIFIED VIRAL HEPATITIS C WITHOUT HEPATIC COMA Status: Chronic (7) History of alcohol abuse Code(s): F10.11 - ALCOHOL ABUSE, IN REMISSION Status: Chronic (8) History of tobacco abuse Code(s): Z87.891 - PERSONAL HISTORY OF NICOTINE DEPENDENCE Status: Chronic (9) History of recreational drug use Code(s): Z87.898 - PERSONAL HISTORY OF OTHER SPECIFIED CONDITIONS Status: Chronic (10) Depression Code(s): F32.9 - MAJOR DEPRESSIVE DISORDER, SINGLE EPISODE, UNSPECIFIED Status: Chronic (11) Hematemesis Code(s): K92.0 - HEMATEMESIS Status: Resolved - Plan Patient is a pleasant 54-year-old gentleman who was admitted to the hospital on February 07, 2020 for hematemesis. This is in the context of cirrhosis and hepatitis C. His INR was elevated. He received FFP. He was seen by gastroenterology service. EGD on 02/08/2020 showed a 1.5 cm cratered ulceration seen in the duodenal bulb along the posterior wall exhibiting adherent clot. He also had moderately severe portal hypertensive gastropathy, 3 to 4 cm hiatal hernia with probable Hua's erosions without any evidence of active or recent bleeding as well as small distal esophageal varices without any high risk stigmata of active/recent bleeding. There were no gastric varices. He had LA grade B reflux esophagitis. He continued to improve on PPI. Hemoglobin was stable. During the material movers hours of February 09/2020, he was in respiratory distress. Chest x-ray suggestive of pneumonia. BNP is elevated in the 400s. He has been started on broad-spectrum antibiotics. I have ordered a repeat Covid test, initial test negative. He will also receive intravenous albumin and diuretics as blood pressure permits. Etiology of respiratory distress is unclear. Chest x-ray suggestive of pneumonia. Will start antibiotics, intravenous vancomycin and cefepime. Covid test was negative. Will repeat Covid test to rule out false negative. Check 2D echocardiogram to evaluate left ventricle ejection fraction. Administer intravenous albumin and intravenous furosemide if blood pressure permits. duodenal ulcer seen on EGD, continue PPI. Continue rifaximin Continue lactulose. Continue thiamine.
[2020-02-10] MEDS: Vancomycin 1 GM in Premix Bag 1 BAG IVPB SCH (21:55)
[2020-02-11] MEDS ORDERED: Lorazepam 2 MG/ML VIAL SLOW IVP SCH (02:15)
[2020-02-11] MEDS: Pantoprazole 40 MG VIAL IVP SCH ×2 (02:40→14:08)
[2020-02-11 02:44] LABS: Actual Bicarbonate (HCO3a) 15.4 mEq/L (22-28); Base Excess (BEa) -10.7 mEq/L (-2.0 to +3.0); CO2 Tension 34.8 mmHg (35.0-45.0); Calcium, Ionized (arterial) 1.22 mmol/L (1.12-1.30); Carboxyhemoglobin (COHb) 0.3 gm% (0.0-3.0); Hemoglobin (Hb) 9.9 g/dL (14.0-18.0); pH, Arterial 7.26 (7.35-7.45)
[2020-02-11 02:50] LABS: O2 Tension (PaO2), arterial 58.6 mmHg (80.0-100.0); Puncture Site RBRACH
--- NOTE | 2020-02-11 03:14 | PDOC.EVN ---
Event Note - Event Note Event Note: called by RN patient is agitated and appear to be doing worse. ABG shows partially compensated metabolic acidosis. patient is diuresing but continues to be sob I plan to give bicarb, recheck his labs, CT chest abdomen and pelvis.
[2020-02-11] MEDS ORDERED: Sodium Bicarb 50 MEQ/50 ML Abboject 8.4% SYRINGE IVP SCH (03:15)
[2020-02-11 03:50] LABS: #Eosinphils 0.3 thou/uL (0.0-0.7); #Monocytes 0.8 thou/uL (0.11-0.59); #Neutrophils 8.2 thou/uL (1.40-6.50); %Basophils 0.4 % (0.0-1.0); %Eosinophils 3.3 % (0.0-10.0); %Lymphocytes 9.7 % (21.0-51.0); %Monocytes 7.7 % (0.0-10.0); %Neutrophils 78.9 % (42.0-75.0); Hemoglobin 9.4 g/dL (14.0-18.0); Mean Corpuscular HGB CONC 35.3 g/dL (32.0-36.0); Mean Corpuscular Hemoglobin 38.2 pg (27.0-31.0); Mean Platelet Volume 9.7 fL (7.4-10.4); Platelet Count 73 thou/uL (130-400); RBC Distribution Width 13.1 % (11.5-14.5); Red Blood Cell (RBC) Count 2.45 mill/uL (4.70-6.10); White Blood Cell (WBC) Count 10.3 thou/uL (4.8-10.8)
[2020-02-11 03:56] LABS: Lactic Acid 2.6 mmol/L (0.5-2.2)
[2020-02-11 04:01] LABS: Anion Gap 15 mmol/L (10-20); BUN (Urea Nitrogen) 14 mg/dL (8.4-25.7); Calc. Creatinine Clearance 61 mL/min (70-130); Calcium 8.6 mg/dL (7.8-10.44); Carbon Dioxide 16 mmol/L (22-29); Chloride 110 mmol/L (98-107); Estimated GFR-MDRD 62; Glucose 81 mg/dL (70-105); Sodium 138 mmol/L (136-145)
[2020-02-11] MEDS: metroNIDAZOLE 500 MG in Premix Bag 1 BAG IVPB SCH ×2 (04:06→08:45)
[2020-02-11 04:19] LABS: Hep A IgM AB Non-Reactive (NonReactive); Hep A IgM S/CO 0.72 S/CO (0-0.79)
[2020-02-11 04:26] LABS: Potassium 2.8 mmol/L (3.5-5.1)
[2020-02-11] MEDS ORDERED: Potassium Chloride 40 MEQ in Premix Bag 1 BAG IVPB SCH (05:00)
[2020-02-11] MEDS ORDERED: Potassium Chloride 20 MEQ in Premix Bag 1 BAG IVPB SCH (05:15)
[2020-02-11] MEDS: Potassium Chloride 20 MEQ in Premix Bag 1 BAG IVPB SCH ×2 (05:43→08:44)
[2020-02-11] MEDS ORDERED: Calcium Carbonate 500 MG ChewTAB PO PRN (07:22)
[2020-02-11] MEDS ORDERED: Sodium Chloride 0.65% Nasal 44 ML BOT EA NARE PRN (07:22)
[2020-02-11] MEDS ORDERED: Ondansetron ODT 4 MG TAB SL PRN (07:22)
[2020-02-11] MEDS ORDERED: Cepastat Lozenges 1 LOZ PO PRN (07:22)
[2020-02-11] MEDS ORDERED: Potassium Chloride 20 MEQ TAB PO SCH (08:00)
[2020-02-11] MEDS: Vancomycin 1 GM in Premix Bag 1 BAG IVPB SCH (08:44)
[2020-02-11] MEDS: Cefepime 1 GM in Sodium Chloride 0.9% 100 ML IVPB SCH (08:44)
[2020-02-11] MEDS: Multivitamin W/ Minerals 1 TAB PO SCH (08:52)
[2020-02-11] MEDS: Folic Acid 1 MG TAB PO SCH (08:52)
[2020-02-11] MEDS: Rifaximin 550 MG TAB PO SCH (08:52)
[2020-02-11] MEDS: Thiamine 100 MG TAB PO SCH (08:53)
--- NOTE | 2020-02-11 08:55 | CT ---
PRELIMINARY REPORT/[facility]/EMERGENCY AFTER HOURS PROCEDURE EXAM: CT Chest with Intravenous Contrast. CT Abdomen and Pelvis with Intravenous Contrast CLINICAL HISTORY: Shortness of breath, abdominal distension TECHNIQUE: Axial computed tomography images of the chest, abdomen and pelvis with intravenous contrast. CONTRAST: With; ISOVUE 370,100mL COMPARISON: None provided. FINDINGS: CHEST: Significant image degradation due to motion. LUNGS: Dense airspace consolidation noted throughout the lungs, particularly in the upper lobes with small p leural effusions left greater than right. Some underlying parenchymal and subpleural cystic changes are noted. HEART AND MEDIASTINUM: No cardiomegaly. No significant pericardial effusion. LYMPH NODES: No lymphadenopathy. ABDOMEN AND PELVIS: Significant image degradation due to motion. Large amount of ascites is present. The liver, spleen, pancreas, and kidneys grossly unremarkable fo r acute abnormality but evaluation is fairly limited. Gallbladder appears distended but no calcified stones. Evaluation of the GI tract is very limited due to the abundant ascites present. There is no bowel ob struction. IMPRESSION: Extensive pneumonic infiltrates noted bilaterally. Etiologies include Covid 19 Massive ascites. No obvious, acute abnormalities within the abdomen or pelvis however evaluation is limited. ELECTRONICALLY SIGNED BY: Josse Teixeira MD Feb 11, 2020 4:15:21 AM DISTRICT BRANCH MANAGER This report is intended for review by the ordering physician only, in accordance of law. If you recei ve this report in error, please call [facility] at [phone]. FINAL REPORT Final report by Dr. [facility] Emergency after-hours study CT THORAX WITH CONTRAST CT ABDOMEN WITH CONTRAST CT PELVIS WITH CONTRAST: DATE: 02/11/2020 3:56 AM HISTORY: 54-year-old male with dyspnea and abdominal distention COMPARISON: 12/16/2019 TECHNIQUE: IV iodinated contrast media: Administered Oral contrast media: Not administered Single phase scans of thorax, abdomen, and pelvis. FINDINGS: New finding of severe airspace opacities with air bronchograms and consolidation involving essentiall y the entire bilateral upper lobes and entire right middle lobe, plus patchy such infiltrates involving portions of bilateral lower lobes. New small left pleural effusion. No cardiomegaly or pericardial effusion. No mediastinal or hilar lymphadenopathy. No thoracic aortic aneurysm or dissection. Herniation of approximately 20% volume of stomach into the chest. There has been a dramatic interval increase in volume of free fluid throughout the abdominal cavity a nd pelvic cavity, moderate to large volume of ascites. No major pathology identified involving kidneys, pancreas, adrenals, spleen, or liver. Previously seen fatty liver no longer appreciated. No small bowel dilation. New Cardona catheter in an empty urinary bladder. No pneumoperitoneum. Again noted is the moderately large disc extrusion at L3-4, and smaller disc herniations at L4-5 and L5-S1. Essentially agree with preliminary report by [facility]. IMPRESSION: 1) New finding of severe airspace disease involving almost 100% of bilateral upper lobes and right mi ddle lobe, plus patchy such consolidations in bilateral lower lobes. Etiology uncertain. Possibilities include pulmonary hemorrhage, noncardiogenic asymmetrical pulmonary alveolar edema, and severe pneumonia. 2) New small left pleural effusion and tiny right pleural effusion. 3) New moderate to large volume ascites. 4) Small to moderate size hiatal hernia. 5) Lumbar degenerative disc disease with multiple disc herniations, with the largest disc extrusion a t L3-4. Transcribed Date/Time: 02/11/2020 9:04 AM
[2020-02-11] MEDS ORDERED: Phytonadione 10 MG/ML AMP PO SCH (09:00)
[2020-02-11 09:19] LABS: Magnesium 1.4 mg/dL (1.6-2.6); Phosphorus 4.5 mg/dL (2.3-4.7)
--- NOTE | 2020-02-11 12:12 | PDOC.HOSPP ---
- Subjective Encounter Date: 02/11/20 Encounter Time: 10:30 Subjective: Patient seen and examined. No overnight events - Objective Vital Signs & Weight: Vital Signs (12 hours) Temp Pulse Resp Pulse Ox 02/11/20 11:39 97.0 F L 02/11/20 08:48 102 H 27 H 96 02/11/20 07:33 96 02/11/20 07:04 97.6 F 02/11/20 03:26 97.9 F 02/11/20 03:00 111 H 29 H 94 L Weight Admit Weight 129 lb 4 oz Weight 129 lb 14.4 oz Most Recent Monitor Data Heart Rate from ECG 103 NIBP 88/49 NIBP BP-Mean 62 Respiration from ECG 30 SpO2 94 I&O: 02/10/20 02/11/20 02/12/20 06:59 06:59 06:59 Intake Total 716 800 670 Output Total 970 800 Balance -254 0 670 Result Diagrams: 02/11/20 03:20 02/11/20 03:20 Radiology Reviewed by me: Yes EKG Reviewed by me: Yes Hospitalist ROS - Review of Systems ROS unobtainable: due to mental status - Medication Medications: Active Medications Generic Name Dose Route Start Last Admin Trade Name Freq PRN Reason Stop Dose Admin Folic Acid 1 mg 02/10/20 09:00 02/11/20 08:52 Folic Acid 1 Mg Tab PO Not Given DAILY NIKKO Cefepime HCl 1 gm/ Sodium 100 mls @ 200 mls/hr 02/10/20 09:00 02/11/20 08:44 Chloride IVPB 100 mls Q12HR NIKKO Administration Metronidazole 500 mg/ Device 100 mls @ 100 mls/hr 02/10/20 09:15 02/11/20 08:45 IVPB 100 mls Q8H NIKKO Administration Iron/Minerals/Multivitamins 1 tab 02/10/20 09:00 02/11/20 08:52 Multivitamin W/ Minerals 1 Tab PO Not Given DAILY NIKKO Pantoprazole Sodium 40 mg 02/10/20 16:00 02/11/20 02:40 Pantoprazole 40 Mg Vial IVP 40 mg 0400,1600 NIKKO Administration Phytonadione 5 mg 02/11/20 09:00 02/11/20 08:52 Phytonadione 10 Mg/Ml Amp PO Not Given DAILY NIKKO Potassium Chloride 20 meq 02/11/20 08:00 02/11/20 08:52 Potassium Chloride 20 Meq Tab PO Not Given QAM-WM NIKKO Rifaximin 550 mg 02/09/20 21:00 02/11/20 08:52 Rifaximin 550 Mg Tab PO Not Given BID NIKKO Sodium Chloride 10 ml 02/08/20 09:00 02/11/20 08:53 Flush - Normal Saline 10 Ml Syringe IVF 10 ml Q12HR NIKKO Administration Thiamine HCl 100 mg 02/08/20 09:00 02/11/20 08:53 Thiamine 100 Mg Tab PO Not Given DAILY NIKKO - Exam General Appearance: ill appearing Eye: PERRL, scleral icterus ENT: normocephalic atraumatic Neck: supple, no JVD Heart: RRR, no murmur, no gallops Respiratory: no wheezes, no rales, no ronchi Gastrointestinal: soft, distended Extremities: 1+ LE edema Skin: normal turgor, no lesions Psychiatric: somnolent, lethargic Hosp A/P (1) Acute respiratory failure with hypoxemia Code(s): J96.01 - ACUTE RESPIRATORY FAILURE WITH HYPOXIA Status: Acute (2) Pneumonia Code(s): J18.9 - PNEUMONIA, UNSPECIFIED ORGANISM Status: Acute Qualifiers: Pneumonia type: aspiration pneumonia Laterality: bilateral Lung location: unspecified part of lung (3) Hepatic encephalopathy Code(s): K72.90 - HEPATIC FAILURE, UNSPECIFIED WITHOUT COMA Status: Acute (4) Duodenal ulcer Status: Acute (5) Hypomagnesemia Code(s): E83.42 - HYPOMAGNESEMIA Status: Acute (6) Hypokalemia Code(s): E87.6 - HYPOKALEMIA Status: Acute (7) Gastroesophageal reflux disease Code(s): K21.9 - GASTRO-ESOPHAGEAL REFLUX DISEASE WITHOUT ESOPHAGITIS Status: Chronic Qualifiers: Esophagitis presence: with esophagitis (8) Hepatitis C Code(s): B19.20 - UNSPECIFIED VIRAL HEPATITIS C WITHOUT HEPATIC COMA Status: Chronic Qualifiers: Viral hepatitis chronicity: chronic (9) History of alcohol abuse Code(s): F10.11 - ALCOHOL ABUSE, IN REMISSION Status: Chronic (10) History of recreational drug use Code(s): Z87.898 - PERSONAL HISTORY OF OTHER SPECIFIED CONDITIONS Status: Chronic (11) History of tobacco abuse Code(s): Z87.891 - PERSONAL HISTORY OF NICOTINE DEPENDENCE Status: Chronic (12) Macrocytic anemia Code(s): D53.9 - NUTRITIONAL ANEMIA, UNSPECIFIED Status: Chronic (13) Thrombocytopenia Code(s): D69.6 - THROMBOCYTOPENIA, UNSPECIFIED Status: Chronic (14) Coagulopathy Status: Chronic - Plan old records reviewed/req, plan discussed w/ family, whitney catheter, continue antibiotics Patient condition is deteriorated, patient is on BiPAP, patient is completely altered, he cannot take any medication by mouth, will give him lactulose per rectally, discussed with the patient's and discussed prognosis in length, patient's decided to make him DNR, order is written, continue empiric antibiotic therapy We will monitor closely in IMCU, will monitor labs, prognosis extremely poor, replace potassium and magnesium,
[2020-02-11] MEDS ORDERED: Magnesium Sulfate 3 GM in Sodium Chloride 0.9% 100 ML IVPB SCH (12:15)
[2020-02-11] MEDS ORDERED: Morphine 10 MG/ML VIAL SLOW IVP PRN (13:16)
[2020-02-11 13:55] LABS: SARS-CoV-2 MS2 Positive; SARS-CoV-2 N Gene Negative; SARS-CoV-2 S Gene Negative; SARS-CoV-2 by NAA Not Detected (NotDetected); SARS-CoV-2 orf1ab Negative
[2020-02-11] MEDS: Morphine 4 MG/ML VIAL SLOW IVP PRN (14:08)
[2020-02-11] MEDS ORDERED: Iopamidol-370 76% 500 ML 1 ML ONE (14:22)
--- NOTE | 2020-02-11 17:27 | PRG ---
DATE OF SERVICE: 02/11/2020 SUBJECTIVE: Mr. Zamudio is worsened overnight, became more short of breath and had to stay on BiPAP. His ammonia went up some. The decision was made this morning between the primary care and the patient's and Pulmonary to not to intubate. After consultation with Dr. Reyes, the decided to move to more toward comfort measures, which I think is reasonable. OBJECTIVE: VITAL SIGNS: Temperature is 97.2, T-max 97.4. Pulse 104. Blood pressure is 93/46 and 100/66. He remains on BiPAP. He has temporal muscle wasting, diffuse body muscle wasting. HEENT: Icterus. ABDOMEN: Soft. Slightly protuberant. LABORATORY DATA: Sodium 138, potassium 3.8, BUN and creatinine are 14 and 1.23. Lactic acid 2.6, magnesium 1.4, phosphorus 4.5, ammonia 105. Bilirubin is 3.4 on 02/09. AFP was less than 2. ASSESSMENT: 1. Gastrointestinal bleed, resolved, secondary to duodenal ulcer. 2. Alcoholic liver disease with decompensation. He became encephalopathic again yesterday, became very short of breath and dyspneic despite Lasix, requiring BiPAP. The patient's decided to move towards DNR and avoid intubation. At this point in time, to give lactulose, we have to do either by enema, he is not able to have an NG tube in, she does not want to proceed with that type of treatment. We will follow along with you. Job ID: [id number]
--- NOTE | 2020-02-11 19:53 | CON ---
DATE OF CONSULTATION: 02/11/2020 HISTORY: Mr. Zamudio is a 54-year-old male, who has apparently moved to the intermediate care unit. He is BiPAP on. He is encephalopathic and unresponsive. His wants him to just kept comfortable. I was consulted because of his presence in the Critical Care Unit. PAST MEDICAL HISTORY: 1. Obtained from records. Apparently, he has a long history of heavy alcohol use, who presented with GI bleeding. 2. History of colectomy for diverticulitis. FAMILY HISTORY: Negative for lung disease in early age. SOCIAL HISTORY: He is a heavy drinker on a daily basis. Apparently, he has quit drinking leading up to this. He was a heroin abuser for many years and quit in 2017, according to records. He is a daily smoker. REVIEW OF SYSTEMS: Not obtainable. PHYSICAL EXAMINATION: GENERAL: He is on BiPAP. He has signs of muscle fatigue. VITAL SIGNS: Heart rates in the 90s, blood pressure 82/51, and respiratory rates in the 20s. HEENT: He is extremely cachectic, temporal muscle wasting. His pupils could not be assessed. NECK: Supple. LUNGS: Remarkable for coarse equal breath sounds. HEART: Regular rhythm. ABDOMEN: Soft. EXTREMITIES: Without clubbing, cyanosis, or edema. LABORATORIES: White count 10.3, hemoglobin 9.4, and platelets 73,000. Sodium 138, potassium 3.8, chloride 110, bicarb 16, BUN 14, and creatinine 1.23. Ammonia is 105. IMPRESSION: 1. Hepatic encephalopathy. 2. Cirrhosis. 3. Respiratory distress. 4. Metabolic acidosis. 5. Electrolyte abnormalities. 6. ?coexistent cardiomyopathy. His chest radiograph suggestive of bilateral pneumonia as is his clinical picture. I cannot see him turning the corner. His wants him kept comfortable and does not want anything invasive done. I have written these orders. This is also discussed with Gastroenterology. This was a 50 min consult with greater than 50% of the time spent on the unit with coordination of care. Job ID: [id number] MTDD
[2020-02-11 20:10] VITALS: TEMP 97
[2020-02-12] MEDS: Pantoprazole 40 MG VIAL IVP SCH (05:07)
[2020-02-12] MEDS: Morphine 4 MG/ML VIAL SLOW IVP PRN (06:53)
[2020-02-12] MEDS: Folic Acid 1 MG TAB PO SCH (08:41)
--- NOTE | 2020-02-12 11:03 | PDOC.DS.DS ---
Provider - Provider Date of Admission: 02/07/20 16:00 Date of Discharge: 02/12/20 Admitting Provider: Josse Botello MD Consultations: Gastroentrology, Pulmonary Primary Care Physician: Selwyn Anaya MD Course - Hospital Course Hospital Course: 54-year-old male who has underlying history of chronic hepatitis C, chronic cirrhosis of liver with portal hypertension who was admitted by Dr. Botello on February 07, 2020, On admission patient had a hematemesis, patient was admitted to [facility], gastroenterology was consulted. Patient underwent endoscopic procedure by gastroenterology. Patient was found with hiatal hernia, Hua erosion, duodenitis, gastritis, ulceration in the duodenum Patient developed hepatic encephalopathy,, patient received 3 FFP during this admission patient also developed acute aspiration pneumonia and sepsis, patient also had abnormal electrolytes, Patient prognosis was extremely poor, patient required BiPAP, patient condition continued to deteriorate, patient's decided to make him DNR, patient was also kept on comfort care before This morning patient and was pronounced. Time of 7:10 AM Primary cause of Acute respiratory failure with hypoxia Hepatic encephalopathy Acute upper GI bleeding Aspiration pneumonia Contributing diagnoses Cirrhosis of liver with portal hypertension Abnormal electrolytes Duodenal ulcer Resuscitation Status: 02/11/20 10:25 Resuscitation Status Routine Resuscitation Status: DNAR: NO Resuscitation Discussed with: Discussed with the - Labs Lab Results: 02/11/20 03:20 02/11/20 03:20 Abnormal Lab Results - Last 48 hrs 02/07/20 19:15: Smooth Muscle Ab Titer 21 H 02/11/20 02:37: Bicarbonate Actual 15.4 L, ABG pH 7.26 L, ABG pCO2 34.8 L, ABG pO2 58.6 L*, ABG O2 Sat (Measured) 85.4 L*, ABG O2 Content 11.9 L, ABG Base Excess -10.7 L, ABG Hematocrit 29.0 L, ABG Hemoglobin 9.9 L, ABG Oxyhemoglobin 84.9 L, ABG Deoxyhemoglobin 14.5 H, A-a O2 Gradient 254.400 H, Potassium 2.80 L, Chloride 111 H 02/11/20 03:20: Potassium 2.8 L*, Chloride 110 H, Carbon Dioxide 16 L 02/11/20 03:20: RBC 2.45 L, Hgb 9.4 L, Hct 26.5 L, MCV 108.0 H, MCH 38.2 H, Plt Count 73 L, Neutrophils % 78.9 H, Lymphocytes % 9.7 L, Neutrophils # 8.2 H, Lymphocytes # 1.0 L, Monocytes # 0.8 H 02/11/20 03:20: Ammonia 105 H 02/11/20 03:20: Lactic Acid 2.6 H 02/11/20 08:49: Magnesium 1.4 L - Physical Exam Vitals: Vital Signs (12 hours) Pulse Resp Pulse Ox 02/12/20 00:45 99 02/12/20 00:44 87 21 H 99 Weight Admit Weight 129 lb 4 oz Weight 129 lb Most Recent Monitor Data Heart Rate from ECG 79 NIBP 57/31 NIBP BP-Mean 39 Respiration from ECG 18 SpO2 100 Patient was at 7:10 AM this morning Physical Exam: The patient was seen on the day of Problem - Problem (1) Acute respiratory failure with hypoxemia Code(s): J96.01 - ACUTE RESPIRATORY FAILURE WITH HYPOXIA Status: Acute (2) Pneumonia Code(s): J18.9 - PNEUMONIA, UNSPECIFIED ORGANISM Status: Acute Qualifiers: Pneumonia type: aspiration pneumonia Laterality: bilateral Lung location: unspecified part of lung (3) Hepatic encephalopathy Code(s): K72.90 - HEPATIC FAILURE, UNSPECIFIED WITHOUT COMA Status: Acute (4) Duodenal ulcer Status: Acute (5) Hypomagnesemia Code(s): E83.42 - HYPOMAGNESEMIA Status: Acute (6) Hypokalemia Code(s): E87.6 - HYPOKALEMIA Status: Acute (7) Gastroesophageal reflux disease Code(s): K21.9 - GASTRO-ESOPHAGEAL REFLUX DISEASE WITHOUT ESOPHAGITIS Status: Chronic Qualifiers: Esophagitis presence: with esophagitis (8) Hepatitis C Code(s): B19.20 - UNSPECIFIED VIRAL HEPATITIS C WITHOUT HEPATIC COMA Status: Chronic Qualifiers: Viral hepatitis chronicity: chronic (9) History of alcohol abuse Code(s): F10.11 - ALCOHOL ABUSE, IN REMISSION Status: Chronic (10) History of recreational drug use Code(s): Z87.898 - PERSONAL HISTORY OF OTHER SPECIFIED CONDITIONS Status: Chronic (11) History of tobacco abuse Code(s): Z87.891 - PERSONAL HISTORY OF NICOTINE DEPENDENCE Status: Chronic (12) Macrocytic anemia Code(s): D53.9 - NUTRITIONAL ANEMIA, UNSPECIFIED Status: Chronic (13) Thrombocytopenia Code(s): D69.6 - THROMBOCYTOPENIA, UNSPECIFIED Status: Chronic (14) Coagulopathy Status: Chronic Plan - Discharge Medications Allergies: dextromethorphan Allergy (Verified 02/08/20 01:48) PER PICIS ORDER - Discharge Instructions Discharge Instructions:: Patient at 7:10 AM Therapies:: Not Applicable Equipment/Supplies:: Not Applicable IV Therapy:: Not Applicable - Follow up Plan Referrals: Selwyn Anaya MD [Primary Care Provider] - Disposition: Quality - Care Measures CORE MEASURES:: N/A
[2020-02-12 16:58] LABS: EliA Vaculitis New Method **** NEW METHOD ****; Mitochondrial Ab 2.6 U/mL (<4 Negative)
[2020-02-14 12:38] LABS: A1 Antitrypsin Phenotype Inter MS (.); Alpha-1-Antitrypsin 99 mg/dL (101-187)
== END 2020-02-12 10:37 | disposition expired | DRG 377 ==
LOC: ERS 15:24 → ERHOLD 16:00 → IMCU/EMU 02-08 00:04 → 2NO 02-09 19:28 → CCU 02-10 06:23 → IMCU/EMU 02-10 13:44
PROVIDERS: ADMIT Internal Medicine; ATTEND Internal Medicine
PROC: 30233L1 Transfusion of Nonautologous Fresh Plasma into Peripheral Vein, Percutaneous Approach (ICD-10-PCS; 2020-02-07)
PROC: 30233K1 Transfusion of Nonautologous Frozen Plasma into Peripheral Vein, Percutaneous Approach (ICD-10-PCS; 2020-02-07)
PROC: 0W3P8ZZ Control Bleeding in Gastrointestinal Tract, Via Natural or Artificial Opening Endoscopic (ICD-10-PCS; principal; 2020-02-08)
PROC: 0DB68ZX Excision of Stomach, Via Natural or Artificial Opening Endoscopic, Diagnostic (ICD-10-PCS; 2020-02-08)
PROC: 5A09457 Assistance with Respiratory Ventilation, 24-96 Consecutive Hours, Continuous Positive Airway Pressure (ICD-10-PCS; 2020-02-10)
DX: K26.4 Chronic or unspecified duodenal ulcer with hemorrhage (principal); J69.0 Pneumonitis due to inhalation of food and vomit; A41.9 Sepsis, unspecified organism; J96.01 Acute respiratory failure with hypoxia; K76.6 Portal hypertension; D68.9 Coagulation defect, unspecified; E46 Unspecified protein-calorie malnutrition; Z68.1 Body mass index [BMI] 19.9 or less, adult; E87.2 Acidosis; I42.8 Other cardiomyopathies; Z66 Do not resuscitate; Z20.828 Contact with and (suspected) exposure to other viral communicable diseases; I85.10 Secondary esophageal varices without bleeding; B18.2 Chronic viral hepatitis C; K72.90 Hepatic failure, unspecified without coma; F32.9 Major depressive disorder, single episode, unspecified; K70.31 Alcoholic cirrhosis of liver with ascites; D53.9 Nutritional anemia, unspecified; K44.9 Diaphragmatic hernia without obstruction or gangrene; K31.89 Other diseases of stomach and duodenum; K21.00 Gastro-esophageal reflux disease with esophagitis, without bleeding; R00.1 Bradycardia, unspecified; Z79.899 Other long term (current) drug therapy; Z87.891 Personal history of nicotine dependence; Z85.51 Personal history of malignant neoplasm of bladder; Z86.73 Personal history of transient ischemic attack (TIA), and cerebral infarction without residual deficits; Z90.49 Acquired absence of other specified parts of digestive tract; Z78.1 Physical restraint status; E83.42 Hypomagnesemia; E87.6 Hypokalemia; D69.6 Thrombocytopenia, unspecified; F10.11 Alcohol abuse, in remission; Z87.898 Personal history of other specified conditions
CPT/HCPCS: 36415; 36430; 71045; 71260; 74177; 80048; 80053; 82103; 82104; 82105; 82140; 82607; 82728; 82746; 82805; 83516; 83540; 83550; 83605; 83735; 83880; 84100; 84484; 85025; 85610; 85730; 86706; 86708; 86709; 86850; 86900; 86901; 87340; 87522; 87635; 87902; 88305; 88312; 93306; 94660; C9113; J0692; J0696; J1940; J2060; J2270; J2354; J2405; J2704; J3370; J3430; J3480; J3490; J7050; P9047; P9059; Q9967; U0002; U0003